=== PATIENT | male | born 1975 | race Caucasian/White ===

== ENCOUNTER 2024-08-27 14:01 | Day surgery (SDC) | payer SELFPAY ==
[2024-08-27] VITALS (15 sets, daily range): BP systolic 117–142; BP diastolic 66–92
--- NOTE | 2024-08-27 09:54 | ED.GENMED ---
History of Present Illness
General
Chief Complaint: Abdominal Pain
Time Seen by Provider: 08/27/24 09:54
History of Present Illness
History of Present Illness:
TIME OF INITIAL ENCOUNTER: 10 AM
HPI: Despite what is listed in chief complaint, the patient is not definitively flu positive. His son was recently here and had a GI type of illness but no testing was performed in the way of norovirus or stool culture. The patient and other
family members had similar episodes. However this patient does have increased pain.
EXAM:
GENERAL: Well appearing in no distress
HEENT: Moist oral mucosa
CARDIOVASCULAR: No murmurs, normal heart rate, regular rhythm, No chest wall tenderness
PULMONARY: No respiratory distress, breath sounds are clear and equal
ABDOMEN: Soft with no peritoneal signs, mild to moderate right lower quadrant tenderness, mild right upper quadrant tenderness, no significant left-sided tenderness
NEUROLOGIC: Excellent strength all extremities, no coordination deficits
PSYCHIATRIC: Appropriate mental status, normal insight and judgement
EXTREMITIES: Nontender, no edema, moves all extremities equally
SKIN: No rash, no lesions
NUMBER AND COMPLEXITY OF PROBLEMS ADDRESSED AT THE ENCOUNTER
� Chronic conditions affecting care: GERD, high blood pressure, anxiety, has had diverticulitis in the past
� Acute Exacerbation and/or Progression of Chronic Illness: This is an acute
� Differential Diagnosis includes: Viral gastroenteritis, foodborne illness, appendicitis, mesenteric adenitis, biliary colic, cholecystitis
AMOUNT AND/OR COMPLEXITY OF DATA TO BE REVIEWED AND ANALYZED
� I performed an independent evaluation of and my interpretation is:
EKG:
CT: CT does show acute appendicitis without diverticulitis�I personally reviewed these images and agree with radiologist interpretation
X-rays:
Laboratory Studies: White blood cell count is normal, hemoglobin normal, sodium 134, minimal elevation of ALT, but total bili normal
Other:
� Review of other/old records: I reviewed records. The patient was seen here in 2017 with diverticulitis at the distal ascending colon
� Clinical information was obtained by an independent historian:
� Prescriptions/Medications Considered but not given:
� Further testing considered but not performed:
RISK OF COMPLICATIONS AND/OR MORBIDITY OR MORTALITY OF PATIENT MANAGEMENT
� Social determinants of health affecting care: Lives at home
� Discussion with other providers: See below
� Escalation of care including admission/observation vs risk of discharge considered: Acute appendicitis seen on CT.
ANY OTHER UPDATES:
12:55 PM: Discussed case with Dr. Shauna montero for general surgery who agrees to take on his service and hopefully patient will go to the OR later today. I have ordered Unasyn. He was given Toradol and fluids earlier.
Past History
Past History
ED Past Medical History: HTN
Social History
Tobacco: Non-smoker
Alcohol: Occasional
Personal:
Living: with family
Employment: Employed
Phy Exam
Physical Exam
Physical Exam:
See HPI
Course
Orders/Labs/Results
Orders:
Orders
08/27/24 10:03
Norovirus by PCR Urgent
LUCÍA Source: Feces/Stool
Specimen Description:
0.9% Sodium Chloride 1000 ml [Nss] 1,000 ml IV BOLUS
08/27/24 10:04
CT Abd/pelvis W Iv Cont Urgent
Comment:
Reason For Exam: N/V/D now w/ increasing pain on R prior diverticul
08/27/24 10:05
Ketorolac [Toradol] 15 mg IV NOW STA
08/27/24 10:11
Complete Blood Count/With Diff Urgent
Comprehensive Metabolic Panel Urgent
08/27/24 12:58
Ampicillin/Sulbactam 3 G [Unasyn] 3 gm 0.9% Sodium Chloride 100 ml [Nss] 100 ml IV NOW
08/27/24 13:00
Flush (0.9% Sodium Chloride) [Flush (Nss)] See Dose Instructions IV PER PROTOCOL
Abnormal Lab Results
08/27/24
10:11
RBC 4.66 L 10^6/uL
(4.70-6.10)
MCH 31.5 H pg
(27.0-31.0)
Absolute Neuts (auto) 6.9 H 10^3/uL
(1.4-6.5)
Absolute Monos (auto) 1.4 H 10^3/uL
(0.1-0.6)
Lymphocytes % 16.2 L %
(20.5-51.1)
Monocytes % 13.5 H %
(1.7-9.3)
Sodium 134 L mmol/L
(135-145)
Chloride 97 L mmol/L
(98-107)
Glucose 108 H mg/dl
(70-99)
ALT 74 H U/L
(0-50)
08/27/24 10:11
08/27/24 10:11
Vital Signs
Initial and Last Documented VS:
Initial Vital Signs
Temp Pulse Resp BP Pulse Ox
36.9 C 85 18 137/92 97
08/27/24 09:46 08/27/24 09:46 08/27/24 09:46 08/27/24 09:46 08/27/24 09:46
Last Documented Vital Signs
Temp Pulse Resp BP Pulse Ox
36.9 C 80 16 142/90 97
08/27/24 09:46 08/27/24 10:19 08/27/24 10:19 08/27/24 13:00 08/27/24 13:00
*Critical Care Note
Total Time (30-74mins, 75-104mins- exclusive of procedures): Not Applicable
ED Attending Note
-
Portions of this chart may have been created with voice recognition software.� Occasional wrong word or��sound alike� substitutions may have occurred due to the inherent limitations of voice recognition software.
Discharge Plan
Departure
Patient Disposition: OR
Date of Disposition: 08/27/24
Time of Disposition: 12:59
Presentation/result/management discussed w/ accepting MD/DO: dr smith
Discharge Problem:
Acute appendicitis
Prescriptions:
No Action
lisinopril-hydrochlorothiazide 20-12.5 mg Tablet
1 tab PO DAILY
paroxetine HCl [Paxil] 20 mg Tablet
20 mg PO DAILY
Protesia
1 mg PO DAILY
Referrals:
Julio Juárez MD [Family Provider] -
Interventions
Interventions:
*Risk Screen - Suicide Last Done: 08/27/24 09:46
*General Assessment Last Done: 08/27/24 09:46
*Neglect/Abuse Screening Last Done: 08/27/24 09:46
ED- Fall Risk Assessment Last Done: 08/27/24 10:19
*ED COVID-19 Vaccine History Last Done: 08/27/24 09:46
FG-Zgvgzf-Ugtbcyctgk Assessment Last Done: 08/27/24 10:19
Discharge Date and Time
Print Language: LATVIAN
[2024-08-27] MEDS: NSS 1000 IV (10:18)
[2024-08-27] MEDS: TORADOL 15 MG IV (10:18)
[2024-08-27 10:23] LABS: % Basophils 0.2 % (0-2); % Eosinophils 1.4 % (0-6); % Immature Granulocytes 0.3 % (0-0.5); % Lymphocytes 16.2 % (20.5-51.1); % Monocytes 13.5 % (1.7-9.3); % Neutrophils 68.4 % (42.2-75.2); Absolute Eosinophils 0.1 10^3/uL (0-0.7); Absolute Lymphocytes 1.6 10^3/uL (1.2-3.4); Absolute Monocytes 1.4 10^3/uL (0.1-0.6); Absolute Neutrophils 6.9 10^3/uL (1.4-6.5); Hematocrit 42.4 % (39.0-52.0); Hemoglobin 14.7 g/dL (13.0-18.0); Mean Corp Hgb Conc. 34.7 g/dL (33.0-37.0); Mean Corpuscular Hgb 31.5 pg (27.0-31.0); Nucleated Red Blood Cells % 0 % (-); Platelet Count 190 10^3/uL (130-400); Red Blood Cell Count 4.66 10^6/uL (4.70-6.10); Red Cell Dist. Width 11.7 % (11.5-14.5); White Blood Cell Count 10.1 10^3/uL (4.8-10.8)
[2024-08-27 10:36] LABS: ALT (SGPT) 74 U/L (0-50); AST (SGOT) 36 U/L (17-59); Albumin 4.3 g/dl (3.5-5.0); Alkaline Phosphatase 86 U/L (38-126); Blood Urea Nitrogen 10 mg/dl (9-20); Calcium 9.5 mg/dl (8.4-10.2); Carbon Dioxide 28 mmol/L (22-30); Chloride 97 mmol/L (98-107); Glucose 108 mg/dl (70-99); Potassium 3.7 mmol/L (3.5-5.1); Sodium 134 mmol/L (135-145); Total Bilirubin 1.1 mg/dl (0.2-1.3); eGFR > 60.00
[2024-08-27] MEDS: UNASYN IV (13:07)
--- NOTE | 2024-08-27 13:50 | HPS.HSE ---
Family Physician
-
Family Physician: Julio Juárez
Chief Complaint
-
abdominal pain
History of Present Illness
49-year-old male presents to [facility] ER complaining of right sided umbilical pain for the past 2 days. He has had diverticulitis in the past but this has been on his left. CT of the abdomen and pelvis shows acute appendicitis with
appendicoliths with no abscess formation. Vitals normal. WBC 10.1. Admitted for surgery.
Medical History
Past Medical History
Past Medical History: Reports HTN
Past Surgical History: Reports Orthopedic (jaw surgery, elbow surgery)
Social History
Tobacco: Smoker (1/2pp week)
Family History
Family History: Not pertinent
Allergies / Home Medications
Allergies reflects when Allergies were last updated in [employer].
Home Medications with original date entered in [employer]
Allergy/Medication List:
Allergies: NKDA
Home meds:
Lisinopril-hydrochlorothiazide 1 tab po daily
Paxil 20mg po daily
Protesia 1mg po daily
Review of Systems
-
History Source: Patient
A 12 point ROS was completed and negative except as noted: Yes
Abdomen/GI: Reports Abdominal Pain
Physical Exam
Vital Signs
Vital Signs
Temp Pulse Resp BP Pulse Ox
98.4 F 80 16 142/90 97
08/27/24 09:46 08/27/24 10:19 08/27/24 10:19 08/27/24 13:00 08/27/24 13:00
Physical Exam
General: Well Developed, Well Nourished and No Apparent Distress
GI: Soft and Tender (RLQ)
Skin: Warm and Dry
Neuro: AO x 3
Psych: Calm
Laboratory Results
-
08/27/24 10:11
08/27/24 10:11
Laboratory Results
Total Bilirubin 1.1 mg/dl (0.2-1.3) 08/27/24 10:11
AST 36 U/L (17-59) 08/27/24 10:11
ALT 74 U/L (0-50) H 08/27/24 10:11
Alkaline Phosphatase 86 U/L (38-126) 08/27/24 10:11
Data Reviewed
-
CT Scan: Image Personally Visualized and interpreted, Report Reviewed by me and Discussed with Patient
Lab Data: Labs Reviewed by me, Discussed with Physician, Discussed with Patient and Discussed with Family
Old Records: Reviewed
Impression/Plan
-
IMPRESSION: 49yo male with two days of RLQ pain, found to have acute appendicitis
PLAN:
-NPO
-Will take to OR for a laparoscopic appendectomy
-Discussed with patient in agreement
-IV antibiotics
--- NOTE | 2024-08-27 15:29 | W.IMMPOSTOP ---
Surgical Immed Post Op Note
-
Primary Surgeon: Petey Villatoro MD
Assisting Surgeon: none
Pre-op Diagnosis: acute appendicitis
Post-op Diagnosis: same
Procedure Performed: laparoscopic appendectomy
Anesthesia Type: general plus local
Specimen / Cultures: appendix
Estimated Blood Loss: 25 cm
Complications: no immediate
Operative Findings: inflamed swollen non-perforated appendix
Hope to send home from .
[2024-08-27] MEDS: DILAUDID 0.5 MG IV (16:04)
== END 2024-08-27 16:30 | disposition home or self-care (01) ==
LOC: SDS 14:01
PROVIDERS: ATTENDING PHYSICIAN Surgery; EMERGENCY PHYSICIAN Emergency Medicine; FAMILY PHYSICIAN Family Medicine
DX: K38.2 Diverticulum of appendix (principal); K38.8 Other specified diseases of appendix
CPT/HCPCS: 44970; 88304; 74177; 80053; 85025; 96361; 96365; 96375; 99284; C1776; Q9967

== ENCOUNTER 2024-09-09 15:47 | Inpatient (IN) | payer OTHER, SELFPAY ==
[2024-09-09] VITALS (9 sets, daily range): BP systolic 84–124; BP diastolic 66–84; BMI 25.8
--- NOTE | 2024-09-09 12:01 | ED.GENMED ---
History of Present Illness
General
Chief Complaint: Fever
Source: patient
Exam Limitations: none
Time Seen by Provider: 09/09/24 11:52
Nursing documentation reviewed up to this point in time: agreed with
History of Present Illness
History of Present Illness:
This is a 49-year-old male with a history of high blood pressure, GERD, who is 13 days s/p appendectomy who presents emergency department today with concerns of abdominal pain and fevers. Patient states that this started 3 days ago when he noticed
lower abdominal pain. He also notes that he started develop a fever as well. He has been taking Motrin to manage his fever. He states that over the past 3 days the pain is not necessarily gotten worse but is been constant. He denies any
radiation of the pain to the back or into the pelvis. He had an appendectomy around [address] Villatoro and states that he called his office and he was going to schedule an appointment to see him for this problem however since his fevers
continued, he reports emergency department. He denies any nausea or vomiting, any diarrhea. He denies any burning with urination. He states that his incision sites have been healing well and he denies any purulent drainage from his incision site
denies any surrounding erythema. He states that his family is sick a few weeks ago but he currently denies any recent sick contacts. He also notes of associated body aches, mild dizziness as well as headaches. He denies any chest pain or
shortness of breath.
Past History
Past History
ED Past Medical History: HTN
Social History
Tobacco: Non-smoker
Alcohol: Occasional
Personal:
Living: with family
Employment: Employed
Review of Systems
Review of Systems
All Other Systems: ROS reviewed and negative except as documented in HPI and ROS
Phy Exam
Physical Exam
Physical Exam:
General: Patient is well appearing and in no acute distress; non-toxic
Skin: Warm and dry, laparoscopic incision sites intact with no purulent drainage no erythema nontender to palpation
Head: Normocephalic, atraumatic
Eyes: Sclera non-icteric. EOMs intact.
Cardiac: Tachycardia otherwise regular rhythm, no murmurs
Peripheral Vascular: No lower extremity swelling or edema
Pulm: Normal respiratory effort, no wheezes, rales, or rhonchi
Abdomen: No palpable abdominal masses, abdomen tender to palpation in infraumbilical region but no rigidity, no guarding
Neuro: CN II-XII intact, no focal neurologic deficits.
Psychiatric: Appropriate mood and affect.
Sepsis
Sepsis Screening
Sepsis Assessment: Sepsis
Sepsis Screen
Sepsis Screen: Sepsis
Date: 09/09/24
Time: 14:45
Course
Orders/Labs/Results
Orders:
Orders
09/09/24 12:10
0.9% Sodium Chloride 1000 ml [Nss] 1,000 ml IV BOLUS
Acetaminophen [Tylenol] 1,000 mg PO NOW STA
09/09/24 12:12
CT Abd/Pel (IV only)-DH only Urgent
Comment:
Reason For Exam: infraumbilical pain s/p appendectomy
09/09/24 12:20
COVID-19 Antigen Urgent
Source: Nasal Swab
Complete Blood Count/With Diff Urgent
Comprehensive Metabolic Panel Urgent
Lipase Urgent
Osmolality, Random Urine Urgent
Date Specimen was Collected: 09/09/24
Time Specimen was Collected: 12:14
Comment: ADD
Serum Osmolality Urgent
Comment: ADD
Urinalysis Reflex To Culture Urgent
Date Specimen was Collected: 09/09/24
Time Specimen was Collected: 12:14
Urine Microscopic Reflex Cult Urgent
Influenza A+B Rapid Molecular Urgent
LUCÍA Source: Nasal Swab
Specimen Description:
09/09/24 13:03
Add On- LAB Urgent
Tests Added?: Serum Osmolality and Urine Random Osmolality
09/09/24 14:37
Piperacillin/Tazo 3.375 Gram [Zosyn] 3.375 gram in 50 ml IV NOW
09/09/24 14:42
Consult Interventional Radiology [IRAD CONSULT] Urgent
Consulting Provider: Jase Monreal
Was physician already notified: Yes
Reason for Consult/Procedure: drain placement
Acknowledgement that appropriate orders are entered: Yes
09/09/24 Dinner
NPO
Allow oral meds: No
Allow clear liquids: No
Abnormal Lab Results
09/09/24
12:20
WBC 14.0 H 10^3/uL
(4.8-10.8)
RBC 4.20 L 10^6/uL
(4.70-6.10)
Hct 38.0 L %
(39.0-52.0)
MCH 31.7 H pg
(27.0-31.0)
Abs Immat Gran (auto) 0.1 H 10^3/uL
(0-0.05)
Absolute Neuts (auto) 10.5 H 10^3/uL
(1.4-6.5)
Absolute Monos (auto) 2.0 H 10^3/uL
(0.1-0.6)
Lymphocytes % 10.0 L %
(20.5-51.1)
Monocytes % 13.9 H %
(1.7-9.3)
Sodium 129 L mmol/L
(135-145)
Chloride 94 L mmol/L
(98-107)
Serum Osmolality 272 L mOsm/kg
(275-300)
Urine Bacteria (Reflex) Few A
(Negative)
Urine Albumin (Reflex) 1+ A
(Neg - Trace)
09/09/24 12:20
09/09/24 12:20
Vital Signs
Initial and Last Documented VS:
Initial Vital Signs
Temp Pulse Resp BP Pulse Ox
101.5 F H 108 18 124/84 97
09/09/24 11:46 09/09/24 11:46 09/09/24 11:46 09/09/24 11:46 09/09/24 11:46
Last Documented Vital Signs
Temp Pulse Resp BP Pulse Ox
99.7 F 90 18 117/76 97
09/09/24 14:15 09/09/24 13:00 09/09/24 11:46 09/09/24 14:00 09/09/24 11:46
MDM/Problems Addressed
Differential Diagnosis Includes:
ddx include influenza, gastroenteritis, intraabdominal abscess, stump appendicitis, post-operative seroma
MDM/Problems Addressed:
49-year-old male with past medical history of hypertension, GERD presents emergency department today with concerns of fevers and abdominal pain for the past 3 days. Of note, he is 13 days status post appendectomy with Dr. Villatoro. Symptoms could
represent viral syndrome however will obtain CAT scan to rule out postop complications such as intraabdominal abscess/post op seroma.
CT scan shows possible intraabdominal abscess. Will start zosyn. Colorectal surgery Dr. Villatoro aware, IR consutled. Patient referred for admission.
Chronic conditions affecting care:
HTN, GERD
*Pulse Oximetry
Patient hypoxic: no
*Critical Care Note
Total Time (30-74mins, 75-104mins- exclusive of procedures): Not Applicable
Data Reviewed
Review of Other/Old Records Reveals: Records (Reviewed history and physical from 08/27/2024 patient seen for 3 days of right lower quadrant pain CT scan shows appendicitis, reviewed operative report from 08/27/2024)
Source: patient and records
ED Attending Note
-
Portions of this chart may have been created with voice recognition software.� Occasional wrong word or��sound alike� substitutions may have occurred due to the inherent limitations of voice recognition software.
Discharge Plan
Departure
Patient Disposition: Admit
Date of Disposition: 09/09/24
Time of Disposition: 14:40
Admit to: Med/Surg
Presentation/result/management discussed w/ accepting MD/DO: Hospitalist
Patient with high blood pressure during this ER visit?: No
Condition: Fair
Discharge Problem:
Intra-abdominal abscess
Prescriptions:
No Action
lisinopril-hydrochlorothiazide 20-12.5 mg Tablet
1 tab PO DAILY
paroxetine HCl [Paxil] 20 mg Tablet
20 mg PO DAILY
Protesia
1 mg PO DAILY
Referrals:
UNKNOWN - PT NOT,INTERVIEWE [Family Provider] -
Interventions
Interventions:
*Risk Screen - Suicide Last Done: 09/09/24 11:46
*General Assessment Last Done: 09/09/24 11:46
*Neglect/Abuse Screening Last Done: 09/09/24 11:46
*ED- Fall Risk Assessment Last Done: 09/09/24 12:29
*ED COVID-19 Vaccine History Last Done: 09/09/24 11:46
ED- Neurological Assessment Last Done: 09/09/24 12:30
ED-Skin Assessment Last Done: 09/09/24 12:30
Discharge Date and Time
Print Language: [place] CITIZ[place]
[2024-09-09] MEDS: TYLENOL 1000 MG PO (12:17)
[2024-09-09] MEDS: NSS 1000 IV ×2 (12:17→18:09)
[2024-09-09 12:49] LABS: COVID-19 Antigen Negative (Negative)
[2024-09-09 12:53] LABS: % Basophils 0.4 % (0-2); % Eosinophils 0.5 % (0-6); % Immature Granulocytes 0.5 % (0-0.5); % Monocytes 13.9 % (1.7-9.3); % Neutrophils 74.7 % (42.2-75.2); Absolute Basophils 0.1 10^3/uL (0-0.2); Absolute Eosinophils 0.1 10^3/uL (0-0.7); Absolute Immature Granulocytes 0.1 10^3/uL (0-0.05); Absolute Lymphocytes 1.4 10^3/uL (1.2-3.4); Absolute Neutrophils 10.5 10^3/uL (1.4-6.5); Hemoglobin 13.3 g/dL (13.0-18.0); Mean Corpuscular Hgb 31.7 pg (27.0-31.0); Mean Corpuscular Volume 90.5 fL (80.0-94.0); Nucleated Red Blood Cells % 0 % (-); Platelet Count 258 10^3/uL (130-400); Red Cell Dist. Width 11.8 % (11.5-14.5)
[2024-09-09 12:55] LABS: ALT (SGPT) 41 U/L (0-50); AST (SGOT) 24 U/L (17-59); Alkaline Phosphatase 110 U/L (38-126); Blood Urea Nitrogen 12 mg/dl (9-20); Calcium 9.6 mg/dl (8.4-10.2); Carbon Dioxide 29 mmol/L (22-30); Chloride 94 mmol/L (98-107); Estimated Creatinine Clearance 114 ml/min; Glucose 93 mg/dl (70-99); Lipase 75 U/L (23-300); Potassium 4.2 mmol/L (3.5-5.1); Sodium 129 mmol/L (135-145); Total Bilirubin 0.6 mg/dl (0.2-1.3); Total Protein 6.9 g/dl (6.3-8.2); eGFR > 60.00
[2024-09-09 13:08] LABS: Urine Albumin 1+ (Neg - Trace); Urine Bilirubin Negative (Negative); Urine Character Clear (Clear); Urine Color Yellow; Urine Glucose Negative (Negative); Urine Ketone Negative (Negative); Urine Leukocyte Negative (Negative); Urine Nitrite Negative (Negative); Urine Occult Blood Negative (Negative); Urine Specific Gravity 1.005 (<1.030); Urine Urobilinogen Negative (Neg - 1+)
[2024-09-09 13:31] LABS: Urine Bacteria Few (Negative); Urine Mucus Few; Urine Red Blood Cell 0-2 /HPF (0-2); Urine Squamous Cell 0-2 /LPF (Few); Urine White Cell 0-2 /HPF (0-5)
[2024-09-09 13:41] LABS: Osmolality Serum 272 mOsm/kg (275-300)
[2024-09-09 13:48] LABS: Osmolality Urine 396 mOsm/kg (300-900)
[2024-09-09] MEDS: ZOSYN 50 IV ×2 (15:10→21:30)
--- NOTE | 2024-09-09 15:16 | HPS.HSE ---
Family Physician
-
Family Physician: Julio Juárez
Chief Complaint
-
Fever and Abdominal Pain
History of Present Illness
Patient is a 49 y/o male past medical history of hypertension, anxiety, psoriasis and recent appendectomy on August 27 who presents with fever and abdominal pain. Patient reports he was doing well until about 3-4 days ago when he developed
fevers, and body aches. This was associated with him lower abdominal discomfort. He denies nausea, vomiting, diarrhea or constipation. CT scan in ED revealed fluid collection at staple line suggestive of intra-abdominal abscess.
Medical History
Past Medical History
Past Medical History: Reports Other
Additional Past Medical History:
Essential Hypertension
Anxiety
Psoriasis
Past Surgical History: Reports Other
Additional Past Surgical History:
Jaw Surgery
Elbow Surgery
Appendectomy
Social History
Tobacco: Smoker (Less than 1 PPD)
Alcohol: Occasional
Family History
Family History: Not pertinent
Allergies / Home Medications
Allergies reflects when Allergies were last updated in [employer].
Home Medications with original date entered in [employer]
Allergy/Medication List:
Allergies
Allergy/AdvReac Type Severity Reaction Status Date / Time
No Known Allergies Allergy Verified 09/09/24 11:49
Home Medications
finasteride 1 mg tablet 1 mg PO DAILY 08/27/24
paroxetine HCl 20 mg tablet (Paxil) 20 mg PO DAILY 08/27/24
cholecalciferol (vitamin D3) 25 mcg (1,000 unit) tablet (Vitamin D3) 25 mcg PO DAILY 09/09/24
lisinopril 20 mg-hydrochlorothiazide 25 mg tablet 1 tab PO DAILY 09/09/24
milk thistle 150 mg capsule 150 mg PO DAILY 09/09/24
therapeutic multivitamin 1 tab PO DAILY 09/09/24
tramadol 50 mg tablet 50 mg PO DAILYPRN PRN moderate pain 09/09/24
Review of Systems
-
A 12 point ROS was completed and negative except as noted: Yes
Constitutional: Reports Fever and Chills
Respiratory: Denies Cough or Trouble Breathing
Cardiac: Denies Chest Pain or Palpitations
Abdomen/GI: Reports See HPI
Physical Exam
Vital Signs
Vital Signs
Temp Pulse Resp BP Pulse Ox
99.7 F 90 18 117/76 97
09/09/24 14:15 09/09/24 13:00 09/09/24 11:46 09/09/24 14:00 09/09/24 11:46
Physical Exam
General: Comfortable and Conversant
HEENT: Anicteric and Moist mucous membranes
Respiratory: Clear and Non Labored Respirations
Cardiac: S1/S2 and Regular Rhythm
GI: Soft and Other (Slightly hypoactive bowel sounds; Mild tenderness infra-umbilical region )
Rectal: Deferred by Provider
Musculoskeletal: No Clubbing, No Cyanosis and No Edema
Skin: Warm and Dry
Neuro: Awake, Alert, Oriented and Nonfocal/grossly intact
Psych: Calm
Laboratory Results
-
09/09/24 12:20
09/09/24 12:20
Laboratory Results
Total Bilirubin 0.6 mg/dl (0.2-1.3) 09/09/24 12:20
AST 24 U/L (17-59) 09/09/24 12:20
ALT 41 U/L (0-50) 09/09/24 12:20
Alkaline Phosphatase 110 U/L (38-126) 09/09/24 12:20
Lipase 75 U/L (23-300) 09/09/24 12:20
Data Reviewed
-
CT Scan: Report Reviewed by me
Lab Data: Labs Reviewed by me
Impression/Plan
-
Sepsis secondary to Intra-Abdominal Abscess following recent appendectomy
-Consult Surgery
-Consult IR
-Check fluid culture
-Check blood cultures
-Continue Zosyn
Hyponatremia
-Check urine electrolytes
-Hold HCTZ
-Recheck sodium in AM
Essential Hypertension
-Continue lisinopril
-HCTZ on hold due to hyponatremia
Anxiety
-Continue Paxil
DVT proph: Lovenox
Code Status: Full Code
--- NOTE | 2024-09-09 15:38 | W.PN.UPDATE ---
Update Note
Progress Note Update
This is an addendum to the H&P written by Lisa Cabezas on 09/09/2024. Patient seen and examined independently with PA.
49-year-old male past medical history of hypertension, anxiety, psoriasis, recent appendectomy on August 27 presenting with fever, abdominal pain 3 to 4 days ago.
Patient clinically septic with fever, leukocytosis and tachycardia.
CT abdomen pelvis shows fluid collection adjacent to the staple line near the inferior cecum likely abscess.
N.p.o., IV fluids, blood cultures, Zosyn, IR consulted for drainage, colorectal surgery consulted. Hold lisinopril/hydrochlorothiazide.
--- NOTE | 2024-09-09 16:00 | CON.CRS ---
Consultation
-
Date/Time Consultation Requested: 09/09/2024 @ 14:30
Date/Time Consultation Performed: 09/09/2024 @ 16:00
Requesting Provider: Lisa Barba PA-C
Performing Provider: Pato Varela MD
Reason for Consultation: Pelvic abscess
Medical History
-
Chief Complaint: Abdominal pain and fever
History of Present Illness:
49-year-old male who underwent a laparoscopic appendectomy on 08/27/[address] Villatoro. At the time of surgery there was an inflamed appendix without perforation. He was doing well but developed right lower quadrant abdominal discomfort followed by
fevers and body aches. He denies any nausea or vomiting. His bowels are regular.
In the ED he had a temp of 101.5. VSS. He is in no distress and there is mild tenderness in the RLQ to deep palpation.
His WBC is [address] scan of the abdomen and pelvis with contrast reveals a 3.7 x 2.8 x 1.9 cm abscess at the appendectomy staple line. There is no free air.
Past Medical History
Past Medical History: HTN and Other (anxiety, psoriasis)
Past Surgical History: Appendectomy, Orthopedic (elbow) and Other (jaw)
Social History
Tobacco: Smoker
Alcohol: Occasional
Family History
Family History: Reviewed & Not Pertinent
Allergies / Home Medications
Allergy/AdvReac Type Severity Reaction Status Date / Time
No Known Allergies Allergy Verified 09/09/24 11:49
�Medication �Instructions �Recorded �Confirmed �Type
finasteride 1 mg tablet 1 mg PO DAILY 08/27/24 09/09/24 History
paroxetine HCl 20 mg tablet (Paxil) 20 mg PO DAILY 08/27/24 09/09/24 History
cholecalciferol (vitamin D3) 25 25 mcg PO DAILY 09/09/24 09/09/24 History
mcg (1,000 unit) tablet (Vitamin
D3)
lisinopril 20 1 tab PO DAILY 09/09/24 09/09/24 History
mg-hydrochlorothiazide 25 mg tablet
milk thistle 150 mg capsule 150 mg PO DAILY 09/09/24 09/09/24 History
therapeutic multivitamin 1 tab PO DAILY 09/09/24 09/09/24 History
tramadol 50 mg tablet 50 mg PO DAILYPRN PRN moderate pain 09/09/24 09/09/24 History
Review of Systems
-
History Source: Patient
All other systems: Negative unless noted
A 10 point review of systems was completed, and was negative except as per HPI.
Physical Exam
Vital Signs
Temp 99.3 F 09/09/24 15:16
Pulse 90 09/09/24 13:00
Resp Rate 18 09/09/24 11:46
Blood pressure 117/69 09/09/24 15:15
SaO2 97 09/09/24 15:16
09/08/24 09/09/24 09/10/24
06:59 06:59 06:59
Actual Weight 81.647 kg
Body Mass Index (BMI) 25.8
Lab Results / Allergies
09/09/24 12:20
09/09/24 12:20
WBC 14.0 10^3/uL (4.8-10.8) H 09/09/24 12:20
Hgb 13.3 g/dL (13.0-18.0) 09/09/24 12:20
Hct 38.0 % (39.0-52.0) L 09/09/24 12:20
Plt Count 258 10^3/uL (130-400) 09/09/24 12:20
Abs Immat Gran (auto) 0.1 10^3/uL (0-0.05) H 09/09/24 12:20
Neutrophils % 74.7 % (42.2-75.2) 09/09/24 12:20
Allergy/AdvReac Type Severity Reaction Status Date / Time
No Known Allergies Allergy Verified 09/09/24 11:49
Physical Exam
General: Well Developed, Well Nourished and No Apparent Distress
HEENT: Anicteric
Respiratory: Clear
Cardiac: Regular Rhythm
GI: Soft and Tender (mild tenderness to deep palpation in the right lower quadrant)
Musculoskeletal: No Edema
Neuro: Awake and Alert
Data Reviewed
-
CT Scan: Image Personally Visualized and interpreted, Report Reviewed by me and Discussed with Patient
Labs: Labs Reviewed by me and Discussed with Patient
Assessment / Plan
-
Pelvic abscess following a laparoscopic appendectomy 13 days ago.
I reviewed the current findings as well as the treatment options including antibiotic therapy with and without percutaneous drainage. We discussed the risks and benefits of each. If the abscess is accessible for drainage, I favor a drain. The drain
will ultimately be removed once the infection clears and there is no evidence of a fistula. He will be admitted for antibiotics and I will order a diet. Further management to follow. All questions answered.
--- NOTE | 2024-09-09 17:09 | W.PN.UPDATE ---
Update Note
Progress Note Update
CT guided RLQ drainage catheter placed, yielding 10 cc of foul smelling pus. Placed 8.5 occitan catheter.
[2024-09-09 17:23] LABS: Urine Sodium 53 mmol/L (30-90)
--- NOTE | 2024-09-09 17:53 | PTCARENOTE ---
Admitted to room 1145-2 from IR. JACOBY to RLQ noted, dressing dry, intact. x3 healing scabbed lap sites noted from recent appendectomy. VSS. AOx3. Updated on plan of care.
[2024-09-09] MEDS: TYLENOL 650 MG PO (18:30)
[2024-09-09 19:20] LABS: Body Fluid Granulocytes 99 %; Body Fluid Lymphocytes 1 %
[2024-09-09 19:21] LABS: Body Fluid Second Tech FB
[2024-09-09] MEDS: ULTRAM 25 MG PO (20:00)
[2024-09-10] MEDS: ZOSYN 50 IV ×4 (03:10→21:44)
[2024-09-10] MEDS: DILAUDID 0.25 MG IV (03:10)
[2024-09-10] MEDS: NSS 1000 IV ×2 (04:49→14:55)
[2024-09-10 06:07] LABS: Hematocrit 36.1 % (39.0-52.0); Hemoglobin 12.4 g/dL (13.0-18.0); Mean Corp Hgb Conc. 34.3 g/dL (33.0-37.0); Mean Corpuscular Hgb 31.5 pg (27.0-31.0); Mean Corpuscular Volume 91.6 fL (80.0-94.0); Mean Platelet Volume 9.7 fL (7.4-10.4); Platelet Count 241 10^3/uL (130-400); Red Blood Cell Count 3.94 10^6/uL (4.70-6.10); Red Cell Dist. Width 11.8 % (11.5-14.5); White Blood Cell Count 9.9 10^3/uL (4.8-10.8)
[2024-09-10 06:34] LABS: Blood Urea Nitrogen 7 mg/dl (9-20); Calcium 9.2 mg/dl (8.4-10.2); Carbon Dioxide 30 mmol/L (22-30); Chloride 97 mmol/L (98-107); Estimated Creatinine Clearance 101 ml/min; Glucose 106 mg/dl (70-99); Potassium 4.3 mmol/L (3.5-5.1); Sodium 132 mmol/L (135-145); eGFR > 60.00
--- NOTE | 2024-09-10 07:31 | W.PN.HOSP.TC ---
Addendum entered and electronically signed by Vivi Cuenca MD 09/10/24 15:38:
I saw and evaluated the patient. I reviewed the resident�s note and agree with findings and plan as documented in the resident�s note except for changes in my documentation
49-year-old male presented with abdominal pain. Patient had appendectomy on August 27.
CT abdomen and pelvis-status post appendectomy. Fluid collection adjacent to the staple line near the inferior cecum likely representing an abscess measuring 3.7 cm AP by 2.8 cm transverse by 1.9 cm craniocaudal.. Fatty liver. Mild stranding of
the fat adjacent to the umbilicus postsurgical changes
CVS: S1-S2 normal
Chest: CTA B/L
Abdomen: Soft, drain , sounds present
Extremities: No edema, normal pulses
# Sepsis secondary to intra-abdominal abscess following recent laparoscopic appendectomy on August 27, 2024
Culture sent-blood culture and abscess cultures
IR consulted for drainage
Colorectal surgery also consulted and following
# Hyponatremia-discontinue hydrochlorothiazide
Follow sodium-Improving
# Hypertension-continue lisinopril. Hold HCTZ
# Anxiety-continue Paxil
# Prostate disease-continue finasteride
# DJD L5-S1 and levoconvex scoliosis L4-L5
# Fatty liver
# Smoker-cessation counseling
# DVT prophylaxis-Lovenox
# Full code
Original Note:
Today's Communication/Plan
-
Continue Zosyn for now and follow cultures
Continue supportive management with IVF and Tylenol as needed
Monitor drain output
CBC, BMP
Assessment / Plan
Assessment / Plan
49-year-old male s/p appendectomy 08/[address] Villatoro, presenting with fever and RLQ abdominal pain about 3 days prior to admission. Initial labs showed mild leukocytosis and hyponatremia.
CT abdomen pelvis (09/09): Status post appendectomy. There is a fluid collection adjacent to the staple line near the inferior cecum, and this very likely represents an abscess, measurements given above. Mild stranding of the fat adjacent to the
umbilicus, probably postsurgical change.
#Sepsis POA secondary to intraabdominal abscess following recent appendectomy
-Resolved-no fevers overnight and white cell count normal now
-Appreciate CRS: Recommended percutaneous drainage by IR-following
-Appreciate IR: CT guided RLQ drainage catheter placed yielding 10 cc of foul smelling pus-fluid sent for culture-JACOBY drain at RLQ (output:20 cc since 6 AM)
-Follow fluid culture-prelim report shows many gram-negative rods
-Blood cultures: pending
-COVID and influenza A negative
-Continue Zosyn for now until culture is back
-Continue IV fluid therapy with NSS@100
-Continue supportive management
#Hyponatremia POA
-Urine sodium and osmolality normal
-Improving with fluids
-most likely SIADH
#Essential Hypertension
-Continue lisinopril
# Anxiety/depression
-Continue Paxil
DVT prophylaxis
Lovenox 40 SC
CODE STATUS
Full code
Anticipated Discharge: Within 24 hours
Subjective/Interval History
-
Date of Service: September 10, 2024
Patient does not have any complaints except for slight pain at the site of drain. He denies any nausea or vomiting. His bowels are regular.
Objective Data
-
Labs:
Laboratory Results
09/10/24
05:43
WBC 9.9
Hgb 12.4 L
Hct 36.1 L
Plt Count 241
Sodium 132 L
Potassium 4.3
Chloride 97 L
Carbon Dioxide 30
BUN 7 L
Creatinine 0.9
Glucose 106 H
Calcium 9.2
Vital Signs:
Vital Signs
Temp Pulse Resp BP Pulse Ox
98 F 76 16 106/66 95
09/09/24 23:05 09/09/24 23:05 09/09/24 23:05 09/09/24 23:05 09/09/24 23:05
I&O
09/09/24 09/10/24 09/11/24
06:59 06:59 07:59
Intake Total 2170 / 2170
Output Total / 35
Balance 2134 / 2134
Review of Systems
-
History Source: Patient
All other systems: Reviewed and negative
Physical Exam
-
General: Well Developed and No Apparent Distress
HEENT: Normocephalic, Atraumatic and Moist Mucous Membranes
Respiratory: Clear to Auscultation
Cardiac: Regular Rhythm and S1/S2; Negative Murmur, Rub or Gallop
GI: Soft, Nondistended, Normal Bowel Sounds, Tender (Mild RLQ tenderness at the site of drain) and Other (Mild erythema and swelling around umbilicus (laparoscopic incision was made at the umbilical site on 08/27))
Rectal: Deferred by Provider
Musculoskeletal: No Clubbing, No Cyanosis and No Edema
Skin: Warm and Dry; Negative Rash
Neuro: Awake, Alert, Oriented and AO x 3
Psych: Calm
[2024-09-10 07:44] VITALS: BP 112/68
[2024-09-10] MEDS: ZESTRIL PO (07:55)
[2024-09-10] MEDS: PAXIL 20 MG PO (07:56)
[2024-09-10] MEDS: TORADOL 10 MG IV (10:49)
--- NOTE | 2024-09-10 13:26 | W.PN.GS2 ---
Addendum entered and electronically signed by Jase Encinas MD 09/10/24 14:14:
Patient seen and examined earlier in the day with surgical SENIOR AUTOMATION ENGINEER. Agree with documented progress note
Feeling less pain/discomfort since IR drainage.
Appetite well. Tolerating regular diet, no nausea or vomiting
AFVSS today
ABD: Soft, nondistended, minimal tenderness at drain site
IR drain with murky serosanguineous fluid
IR cultures: Many gram-negative bacilli/gram stain many gram-negative rods
Assessment/plan: 49-year-old male postprocedure day #1 status post IR drainage intra-abdominal postop fluid collection status post appendectomy
Continue Zosyn
Diet as tolerated
Await culture results to tailor oral antibiotic
anticipate discharge with IR drain in place
Original Note:
Today's Communication / Plan
-
Continue drain
Follow cx on abx
Assessment / Plan
-
49 yo male s/p lap appi on 08/27/[address] Villatoro presenting with pelvic abscess now PPD #1 IR drainage
Febrile to 101.5 around 24hours ago, otherwise AFVSS
Leukocytosis resolved
Abscess cx pending
--C/W IR drain, will likely remain in place upon dc which was discussed with the patient
--Continue IV abx
--Continue regular diet
--D/C IVF
--VTE ppx with lovenox and SCD's
--CM consult for VNA arrangements for assistance with drain care
Subjective Data
-
Date of Service: September 10, 2024
Patient seen and examined at bedside with Dr. Encinas. Some focal pain to the RLQ at drain site, but otherwise no pain. No n/v. Tolerating diet.
Objective Data
-
Intake and Output
09/09/24 09/10/24 09/11/24
06:59 06:59 07:59
Intake Total 2169 / 2169
Output Total
Balance 2134 / 2134
Intake:
Oral fluids 960 / 960
IV fluids (Total) 1200 / 1200
Amount instilled into Drain (
Total)
Right Lower Abdomen Roger-
Espinoza Placed in IR
Output:
Drain Output (Total)
Right Lower Abdomen Roger-
Espinoza Placed in IR
Other:
Number of approximated MODERATE 2
amounts of urine
Vital Signs
Temp Pulse Resp BP Pulse Ox
98.9 F 74 17 112/68 95
09/10/24 07:44 09/10/24 07:55 09/10/24 07:44 09/10/24 07:55 09/10/24 07:44
Lab Results
09/10/24 05:43
09/10/24 05:43
Calcium 9.2 mg/dl (8.4-10.2) 09/10/24 05:43
Total Bilirubin 0.6 mg/dl (0.2-1.3) 09/09/24 12:20
AST 24 U/L (17-59) 09/09/24 12:20
ALT 41 U/L (0-50) 09/09/24 12:20
Alkaline Phosphatase 110 U/L (38-126) 09/09/24 12:20
Total Protein 6.9 g/dl (6.3-8.2) 09/09/24 12:20
Albumin 4.0 g/dl (3.5-5.0) 09/09/24 12:20
Physical Exam
-
NAD
ABD soft, tender to RLQ, ND, SENIOR AUTOMATION ENGINEER
IR drain with pink seropurulent fluid
[2024-09-10 15:17] VITALS: BP 137/81
--- NOTE | 2024-09-10 15:55 | CM ---
Addendum entered by Suly Hoffman RN 09/11/24 13:34:
JANE reviewed medical records. Plan for discharge to home today. Patient will leave with a drain. 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
PLAN: Home with family.
Original Note:
CM reviewed medical records. CM met with patient in room. Confirmed demographics. Patient does not have a history of VN, SNF or DME. Patient is active with his PCP>
Plan for discharge to home with drain. 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
PLAN: home
[2024-09-10] MEDS: ULTRAM 50 MG PO (21:47)
[2024-09-10 23:00] VITALS: BP 109/68
[2024-09-11] MEDS: NSS 1000 IV (01:02)
[2024-09-11] MEDS: ZOSYN 50 IV ×2 (04:50→11:27)
[2024-09-11] MEDS: TORADOL 10 MG IV (04:53)
[2024-09-11 07:35] VITALS: BP 122/76
[2024-09-11 08:24] LABS: Blood Urea Nitrogen 5 mg/dl (9-20); Carbon Dioxide 27 mmol/L (22-30); Chloride 103 mmol/L (98-107); Estimated Creatinine Clearance 114 ml/min; Glucose 101 mg/dl (70-99); Potassium 4.1 mmol/L (3.5-5.1); Sodium 136 mmol/L (135-145); eGFR > 60.00
[2024-09-11 08:26] LABS: Hematocrit 33.9 % (39.0-52.0); Hemoglobin 11.5 g/dL (13.0-18.0); Mean Corp Hgb Conc. 33.9 g/dL (33.0-37.0); Mean Corpuscular Hgb 31.3 pg (27.0-31.0); Mean Corpuscular Volume 92.4 fL (80.0-94.0); Platelet Count 227 10^3/uL (130-400); Red Blood Cell Count 3.67 10^6/uL (4.70-6.10); Red Cell Dist. Width 11.8 % (11.5-14.5); White Blood Cell Count 7.4 10^3/uL (4.8-10.8)
[2024-09-11] MEDS: ZESTRIL 20 MG PO (08:28)
[2024-09-11] MEDS: PAXIL 20 MG PO (08:28)
--- NOTE | 2024-09-11 09:21 | W.PN.HOSP.TC ---
Addendum entered and electronically signed by Vivi Cuenca MD 09/11/24 13:17:
Dressed to go home and anxious to get home. States that he is not staying another night here. He would leave regardless. Importance of IV AB vs Oral discussed .
Denies any pain
Abdomen exam is soft and nontender
cultures came back.
Per discussion with surgeon OK for discharge with Drain. Dr. Villatoro to arrange for follow-up for imaging and tube care
Sensitivities reviewed.
Patient was given information regarding Cipro and Flagyl. We will discharge on Cipro and Flagyl for a total of 2 weeks less of what he had here.
Discussed wit RN
Discussed with Surgeon.
More than 30 minutes spent in discharge including
Final examination of the patient
Summarizing hospital stay
Instructions for continuing care to all relevant caregivers
Preparation of discharge records, prescriptions, and referral forms
Total time spent (in minutes): 32 min
Original Note:
Today's Communication/Plan
-
Continue Zosyn
Follow for antibiotic sensitivity
Medically stable for discharge pending antibiogram
Assessment / Plan
Assessment / Plan
49-year-old male s/p appendectomy 08/[address] Villatoro, presenting with fever and RLQ abdominal pain about 3 days prior to admission. Initial labs showed mild leukocytosis and hyponatremia.
CT abdomen pelvis (09/09): Status post appendectomy. There is a fluid collection adjacent to the staple line near the inferior cecum, and this very likely represents an abscess, measurements given above. Mild stranding of the fat adjacent to the
umbilicus, probably postsurgical change.
#Sepsis POA secondary to intraabdominal abscess following recent appendectomy
-Resolved-no fevers overnight and white cell count normal now
-Appreciate CRS: Recommended percutaneous drainage by IR-following
-Appreciate IR: CT guided RLQ drainage catheter placed 09/09 yielding 10 cc of foul smelling pus-fluid sent for culture-JACOBY drain at RLQ (output:25 cc since yesterday afternoon)
-Follow fluid culture-prelim report shows GNB-final report pending
-Blood cultures: NGTD
-COVID and influenza A negative
-Continue Zosyn
-IV fluid discontinued
-Continue supportive management
#Hyponatremia POA
-Resolved
-Urine sodium and osmolality normal
-IV fluid discontinued
-Most likely SIADH
#Essential Hypertension
-Continue lisinopril
-Cont to hold HCTZ
# Anxiety/depression
-Continue Paxil
DVT prophylaxis
Lovenox 40 SC
CODE STATUS
Full code
Anticipated Discharge: Within 24 hours
Subjective/Interval History
-
Date of Service: September 11, 2024
States he is feeling much better. Mentions he has not been eating well since he does not like hospital food.
Objective Data
-
Labs:
Laboratory Results
09/11/24
07:57
WBC 7.4
Hgb 11.5 L
Hct 33.9 L
Plt Count 227
Sodium 136
Potassium 4.1
Chloride 103
Carbon Dioxide 27
BUN 5 L
Creatinine 0.8
Glucose 101 H
Calcium 9.0
Vital Signs:
Vital Signs
Temp Pulse Resp BP Pulse Ox
97.9 F 58 17 122/76 97
09/11/24 07:35 09/11/24 07:35 09/11/24 07:35 09/11/24 07:35 09/11/24 07:35
I&O
09/10/24 09/11/24 09/12/24
05:59 06:59 06:59
Intake Total
Output Total
Balance
Review of Systems
-
History Source: Patient
All other systems: Reviewed and negative
Physical Exam
-
General: Well Developed and No Apparent Distress
HEENT: Normocephalic, Atraumatic and Moist Mucous Membranes
Respiratory: Clear to Auscultation
Cardiac: Regular Rhythm and S1/S2; Negative Murmur, Rub or Gallop
GI: Soft, Nondistended, Normal Bowel Sounds, Tender (Mild RLQ tenderness at the site of drain) and Other (Mild erythema and swelling around umbilicus (laparoscopic incision was made at the umbilical site on 08/27))
Rectal: Deferred by Provider
Musculoskeletal: No Clubbing, No Cyanosis and No Edema
Skin: Warm and Dry; Negative Rash
Neuro: Awake, Alert, Oriented and AO x 3
Psych: Calm
--- NOTE | 2024-09-11 10:51 | W.PN.GS2 ---
Addendum entered and electronically signed by Jase Encinas MD 09/11/24 11:02:
Patient seen and examined with surgical RELISH BLENDER.
Patient eager for discharge. Denies any abdominal pain other than slight discomfort at JACOBY site.
Tolerating regular diet.
AFVSS
NAD AAOx3
ABD: Soft, nondistended, nontender
IR drain with murky, dark fluid
A/P: PPD #2 status post IR drainage postop intra-abdominal abscess/fluid collection status post lap appendectomy
Stable for discharge from surgical standpoint
Maintain IR drain -Dr. Villatoro will arrange for outpatient follow-up imaging/tube care
Original Note:
Today's Communication / Plan
-
Await cx results, dispo planning
Assessment / Plan
-
49 yo male s/p lap appi on 08/27/[address] Villatoro presenting with pelvic abscess now PPD #2 IR drainage
No further fevers, VSS
Leukocytosis resolved
Abscess cx pending, gram negative rods on preliminary result
--C/W IR drain and daily flush, will remain in place upon dc
--Continue IV abx, await cx to transition to PO for discharge; anticipate use of augmentin
--Continue regular diet
--VTE ppx with lovenox and SCD's
clear for discharge from surgical standpoint with drain in place once cx sensitivities resulted for abx selection
Subjective Data
-
Date of Service: September 11, 2024
Patient seen and examined at bedside with Dr. Encinas. Denies n/v. Tolerating diet. Pain improved, some minimal discomfort to drain site. No fevers/chills.
Objective Data
-
Intake and Output
09/10/24 09/11/24 09/12/24
05:59 06:59 06:59
Intake Total
Output Total
Balance
Intake:
Oral fluids
IV fluids (Total)
IV piggybacks
Amount instilled into Drain (
Total)
Right Lower Abdomen Roger-
Espinoza Placed in IR
Output:
Drain Output (Total)
Right Lower Abdomen Roger-
Espinoza Placed in IR
Other:
Number of approximated MODERATE
amounts of urine
Vital Signs
Temp Pulse Resp BP Pulse Ox
97.9 F 58 17 122/76 97
09/11/24 07:35 09/11/24 07:35 09/11/24 07:35 09/11/24 07:35 09/11/24 07:35
Lab Results
09/11/24 07:57
09/11/24 07:57
Calcium 9.0 mg/dl (8.4-10.2) 09/11/24 07:57
Total Bilirubin 0.6 mg/dl (0.2-1.3) 09/09/24 12:20
AST 24 U/L (17-59) 09/09/24 12:20
ALT 41 U/L (0-50) 09/09/24 12:20
Alkaline Phosphatase 110 U/L (38-126) 09/09/24 12:20
Total Protein 6.9 g/dl (6.3-8.2) 09/09/24 12:20
Albumin 4.0 g/dl (3.5-5.0) 09/09/24 12:20
Physical Exam
-
NAD
ABD soft, minimally tender to drain site, ND, RELISH BLENDER
IR drain with dark seropurulent fluid
[2024-09-11 13:44] VITALS: BP 145/91
--- NOTE | 2024-09-11 14:01 | W.DCSUMMARY ---
Addendum entered and electronically signed by Vivi Cuenca MD 09/12/24 08:46:
Read, reviewed, and agree. See same day progress note for additional details. Time spent coordinating care, DC planning, review of DC plan of care with resident, transition of care, review of records in EMR, med rec, consults, notes, d/w
consultants, nursing.
Original Note:
Discharge Summary
Discharge Data
Date of Admission: 09/09/24
Date of Discharge: 09/11/24
-
Pending Results: No
Hospital Course
Patient is a 49 year old male who underwent a laparoscopic appendectomy on 08/27/[address] Villatoro. Patient presented to ED with fever, chills and RLQ abdominal pain about 3 days prior to admission. He was febrile upon arrival and initial labs
showed leukocytosis and hyponatremia. Abdominal/pelvis CT done while in the ED showed fluid collection adjacent to the staple line near the inferior cecum, very likely representing an abscess. Mild stranding of the fat adjacent to the umbilicus,
probably postsurgical change.
Blood cultures were sent and patient was started on Zosyn. Patient was admitted for further evaluation.
Problem list:
1. Sepsis secondary to intra-abdominal abscess following recent appendectomy
Colorectal surgery was consulted who recommended antibiotic therapy with percutaneous drainage. IR placed CT-guided RLQ drainage catheter, yielding 10 cc of foul smelling pus. Zosyn and IVF were continued, resulting in resolution of sepsis. Pain
was adequately managed with tramadol. Abscess fluid culture came back positive for E. coli. Blood cultures remained negative after 48 hours. Patient should continue Flagyl + Cipro for another 12 days after discharge. Drain should remain in place
and flushed daily until seen by Dr. Villatoro in 1 week. We recommend repeating CBC in 1 week.
2. Hyponatremia
Serum sodium was 129 upon arrival. Home lisinopril-HCTZ was held and patient received lisinopril during stay. Urine sodium and osmolality were checked which were within normal limits. Hyponatremia resolved after IV fluid therapy and holding
hydrochlorothiazide. Sodium level returned back to normal prior to discharge. We recommend repeating BMP in 1 week.
3. Rest of chronic conditions including essential hypertension and anxiety/depression, were managed as prior to admission.
Discharge Plan
-
Patient Disposition: Home (Routine Discharge)
Discharge Diagnosis/Procedures: Sepsis secondary to intraabdominal abscess following recent appendectomy (08/27)
Hyponatremia POA
Essential Hypertension
Fatty liver
Diverticulosis
Condition: Good
Diet: Regular and Low Sodium
Activity: No strenuous activity
Driving Restrictions: Not until seen by your Dr
Bathing Restrictions: OK to Shower
Blood Work: BMP in one week, CBC in 1 week,.
Others Tests: Ultrasound of the bladder to rule out thickening ,prescription from PCP.
Wound Care: You will need to forward flush your drain (towards the body) daily. First wipe the port with alcohol wipe and turn the stopcock toward the bulb. Then twist the flush on to the port and slowly inject 10ml of sterile saline.
Keep track of the amount coming out of your drain and follow closely with your surgeon to determine when the drain can be removed.
Remove the dressing from your drain before showering and then apply a clean gauze dressing. Change daily and as needed.
Follow-up with primary physician for management of fatty liver
Activity Restrictions/Additional Instructions:
You will need to forward flush your drain (towards the body) daily with 10ml of sterile saline. Keep track of the amount coming out of your drain and follow closely with your surgeon to determine when the drain can be removed.
Instructions: How to care for a closed suction drain
Referrals:
Michael Villatoro MD [Active] - in one week
Julio Juárez MD [Family Provider] - in less than 1 week
Prescriptions:
New
sodium chloride 0.9 % (flush) [Normal Saline Flush] Syringe
10 ml intra-catheter DAILY Qty: 300 0RF
Rx Instructions:
Flush drain daily
ciprofloxacin HCl 500 mg tablet
500 mg PO Q12H 14 Days Qty: 24 0RF
metronidazole 500 mg tablet
500 mg PO Q8H 14 Days Qty: 36 0RF
polyethylene glycol 3350 [Miralax] 17 gram powder in packet
17 g PO DAILY Qty: 30 0RF
Continued
paroxetine HCl [Paxil] 20 mg Tablet
20 mg PO DAILY
finasteride 1 mg Tablet
1 mg PO DAILY
therapeutic multivitamin Tablet
1 tab PO DAILY
tramadol 50 mg Tablet
50 mg PO DAILYPRN PRN (Reason: moderate pain)
cholecalciferol (vitamin D3) [Vitamin D3] 25 mcg (1,000 unit) Tablet
25 mcg PO DAILY
milk thistle 150 mg Capsule
150 mg PO DAILY
lisinopril-hydrochlorothiazide 20-25 mg Tablet
1 tab PO DAILY 30 Days Qty: 30 0RF
Rx Instructions:
To be taken only if SBP>130.
Discharge Orders:
Discharge Patient (As Directed); Ordered 09/11/24
Ordered By: Mariajose Bryant
Discharge Date and Time
Print Language: ESTONIAN
== END 2024-09-11 15:51 | disposition home or self-care (01) | DRG 862 ==
LOC: 1 ACUTE 15:47
PROVIDERS: Physician Assistant; Physician Assistant Medical; Radiology Vascular & Interventional Radiology; ADMITTING PHYSICIAN Hospitalist; ATTENDING PHYSICIAN Hospitalist; EMERGENCY PHYSICIAN Student in an Organized Health Care Education/Training Program; FAMILY PHYSICIAN Family Medicine; OTHER PHYSICIAN Surgery
PROC: 0W9J30Z Drainage of Pelvic Cavity with Drainage Device, Percutaneous Approach (ICD-10-PCS; 2024-09-09)
DX: T81.43XA Infection following a procedure, organ and space surgical site, initial encounter (principal); A41.9 Sepsis, unspecified organism; K65.1 Peritoneal abscess; E87.1 Hypo-osmolality and hyponatremia; B96.20 Unspecified Escherichia coli [E. coli] as the cause of diseases classified elsewhere; F41.9 Anxiety disorder, unspecified; L40.9 Psoriasis, unspecified; F17.210 Nicotine dependence, cigarettes, uncomplicated; I10 Essential (primary) hypertension; K76.0 Fatty (change of) liver, not elsewhere classified; K57.90 Diverticulosis of intestine, part unspecified, without perforation or abscess without bleeding; F32.A Depression, unspecified; Z79.899 Other long term (current) drug therapy; Z90.49 Acquired absence of other specified parts of digestive tract; Z11.52 Encounter for screening for COVID-19
CPT/HCPCS: 49406; 74177; 80048; 80053; 81003; 81015; 83690; 83930; 83935; 84300; 85025; 85027; 87040; 87070; 87077; 87186; 87205; 87502; 87811; 89051; 96361; 96365; 99152; 99285; Q9967

== ENCOUNTER → 2024-09-20 14:09 | Outpatient (REF) | payer OTHER, SELFPAY ==
[2024-09-20 14:26] VITALS: BP 134/92; BP_SYST 87
[2024-09-20 14:51] VITALS: BP 128/91
== END ==
LOC: RADI 14:09
PROVIDERS: ATTENDING PHYSICIAN Surgery; FAMILY PHYSICIAN Family Medicine
DX: Z46.82 Encounter for fitting and adjustment of non-vascular catheter (principal); K65.1 Peritoneal abscess
CPT/HCPCS: 49424; 76080